=== PATIENT | male | born 1985 | race Caucasian/White ===

== ENCOUNTER → 2021-09-05 | Outpatient (CLI) | payer OTHER ==
[~2021-09-05] MED LIST: DOXY100 PO; OXYACE5T PO; OXYACE7.5T PO; RXOXYACE PO
== END ==
LOC: LAB SHORT 14:45 → LAB 14:45
DX: D48.5 Neoplasm of uncertain behavior of skin (principal); D22.5 Melanocytic nevi of trunk; L82.1 Other seborrheic keratosis
CPT/HCPCS: 88305

== ENCOUNTER → 2023-01-01 | Outpatient (CLI) | payer OTHER | END | disposition home or self-care (01) | LOC: LAB 14:20 → LAB SHORT 14:20 | DX: L60.3 Nail dystrophy (principal) | CPT/HCPCS: 87102; 87106 ==

== ENCOUNTER → 2023-08-06 | Outpatient (CLI) | payer OTHER | LOC: LAB SHORT 08:24 → LAB 08:24 | DX: L82.1 Other seborrheic keratosis (principal); L57.0 Actinic keratosis | CPT/HCPCS: 88305 ==